=== PATIENT | male | born 1995 | race Caucasian/White ===

== ENCOUNTER 2018-10-18 10:46 | Emergency (ER) | payer BC, MEDICAID ==
[~2018-10-18] VITALS: Ht 172.7 cm; Wt 107.0 kg
[2018-10-18 10:47] VITALS: BP 150/59; PULSE 66; RESP 19; Ht 172.7 cm; Wt 107.0 kg
--- NOTE | 2018-10-18 13:45 | ERD ---
ER Documentation Chief Complaint Chief Complaint BILATERAL PAIN/ SUTURE REMOVAL HPI 23-year-old male presenting for suture removals of bilateral palms. 13 days ago patient fell on glass and sustained lacerations. He was seen at [facility] and had sutures placed. Patient states he is unable to move the distal portion of his right thumb and he was told to follow-up with a hand surgeon however has failed to prior to today's visit. Patient is right-hand dominant. Denies other medical problems. NKDA. Surgical history denies. Up-to-date on vaccinations ROS All systems reviewed and are negative except as per history of present illness. Medications Home Meds Reported Medications [none] No Conflict Check 07/19/13 Allergies Allergies: Coded Allergies: No Known Allergy (Unverified , 07/19/13) PMhx/Soc History of Surgery: Yes (nose sx) Anesthesia Reaction: No Hx Neurological Disorder: No Hx Respiratory Disorders: No Hx Cardiac Disorders: No Hx Psychiatric Problems: No Hx Miscellaneous Medical Probl: No Hx Alcohol Use: No Hx Substance Use: No Hx Tobacco Use: No FmHx Family History: No diabetes, No coronary disease, No other Physical Exam Vitals Vital Signs Date Temp Pulse Resp B/P (MAP) Pulse Ox O2 O2 Flow FiO2 Time Delivery Rate 10/18/18 98.2 66 19 150/59 97 10:47 (89) Physical Exam GENERAL: The patient is well-appearing, well-nourished, in no acute distress CHEST: Clear to auscultation bilaterally. There are no rales, wheezes or rhonchi. HEART: Regular rate and rhythm. No murmurs, clicks, rubs or gallops. EXTREMITIES: Healing laceration noted to bilateral palms of hand. Patient is unable to isolate at the DIP joint of the right thumb. Compartments are soft. Cap refill and sensation intact to all digits. NEUROLOGIC: Alert and oriented. Cranial nerves II through XII intact. Motor strength in all 4 extremities with 5 out of 5 strength. Sensation grossly intact. SKIN: Sutures intact to bilateral palms with no surrounding dehiscence or erythema. No purulence or active bleeding. Procedures/MDM ER course: Sutures removed without complication. Velcro splint applied in ED. MDM: 23-year-old male presenting with findings consistent with a tendon injury to the right thumb. Sutures removed in the ER without complication and no signs of infection were seen. Patient is splinted and told to immediately follow-up with all of the hand specialist as he needs to have close follow-up for tendon repair. This is expressed extensively with patient and he understands the concern and the necessity of follow-up. Patient is told to follow-up with primary care. All questions answered at discharge Departure Diagnosis: Primary Impression: Tendon laceration Additional Impression: Encounter for removal of sutures Condition: Stable Patient Instructions: Suture Removal, No Complication, Tendon Rupture, Finger Referrals: [facility] Additional Instructions: FOLLOW UP WITH YOUR PRIMARY CARE PHYSICIAN TOMORROW.Return to this facility if you are not improving as expected. EMMIE BOWIE PA-C Oct 18, 2018 13:45
== END 2018-10-18 11:38 | disposition home or self-care (01) ==
LOC: FTE 10:46
DX: Z48.02 Encounter for removal of sutures (principal)
CPT/HCPCS: Z7502; Z7610; 99281